=== PATIENT | male | born 1950 | race Caucasian/White ===

== ENCOUNTER 2018-05-13 08:43 | Outpatient (CLI) | payer MEDICARE, MEDICAID, SELFPAY ==
[2018-05-13 09:34] LABS: Hemoglobin A1C 6.4 % (4.5-6.2)
[2018-05-13 09:58] LABS: ALT 41 U/L (12-78); AST 28 U/L (15-37); Albumin 3.8 g/dL (3.4-5.0); Alkaline Phosphatase 80 U/L (46-116); Anion Gap 9.5 mmol/L (3-11); BUN 17 mg/dL (7-18); Bilirubin, Total 0.4 mg/dL (0.2-1.0); CO2 30.5 mmol/L (21.0-32.0); CREATININE 0.92 mg/dL (0.70-1.30); Calcium 9.1 mg/dL (8.5-10.1); Chloride 102 mmol/L (98-107); Glucose 124 mg/dL (70-100); Potassium 4.3 mmol/L (3.5-5.1); Sodium 142 mmol/L (136-145); Total Protein 7.2 g/dL (6.4-8.2)
[2018-05-13 13:41] LABS: Cholesterol 176 mg/dL (50-200); HDL Cholesterol 38 mg/dL (40-60); LDL CHOLESTEROL 130 mg/dL (<100); Triglyceride 97 mg/dL (30-150)
[2018-05-13 13:45] LABS: COMMENT (LAB VIEW ONLY) 189.07 mg/dL; Microalb ug/mg Crea 4.8 ug/mg Cr
== END 2018-05-13 09:03 ==
PROVIDERS: PCP Family Medicine; Visit Provider Family Medicine
DX: E11.9 Type 2 diabetes mellitus without complications; I10 Essential (primary) hypertension
CPT/HCPCS: 36415; 80053; 80061; 83721; 82043; 82570; 83036

== ENCOUNTER 2019-01-11 10:51 | Emergency (ER) | payer MEDICARE, MEDICAID, SELFPAY ==
[2019-01-11 10:55] VITALS: BP 139/63; PULSE 87; RESP 16; TEMP 36.8; O2SAT 95
[2019-01-11] MEDS: Cephalexin 500 MG CAP PO (11:21)
--- NOTE | 2019-01-11 11:28 | ED.GENADUL_ITS ---
Discharge Plan Disposition Patient Disposition: HOME Condition: Stable Discharge Details Chief Complaint: RashLesion Clinical Impression: Bug bite with infection Primary Care Provider: Vikki Lucero ED Provider: Juan Hernandez Home Meds and New Rx's Prescriptions: New cephalexin 500 mg tablet 500 mg PO QID 7 Days Qty: 28 RF: 0 Continued pravastatin 40 mg tablet 40 mg PO DAILY Qty: 30 RF: 4 albuterol sulfate [ProAir HFA] 8.5 GM HFA aerosol inhaler 1 - 2 puff Inhalation QID PRNQty: 1 RF: 3 Aerochamber Plus Flow-Vu 1 EACH spacer 1 ea Miscellaneous QID PRNQty: 1 RF: 0 metformin 500 MG tablet 500 mg PO DAILY Qty: 90 RF: 2 hydrochlorothiazide 25 MG tablet 25 mg PO DAILY Qty: 90 RF: 4 lisinopril 10 MG tablet 10 mg PO DAILY Qty: 90 RF: 4 No Action aspirin [Adult Low Dose Aspirin] 81 mg tablet,delayed release (DR/EC) 81 mg PO DAILY Qty: 90 RF: 0 Discharge Instructions Instructions: Cellulitis (ED), Insect Bite or Sting (ED) Additional Instructions: Please take antibiotic as prescribed and for the full course and return to the emergency department immediately for any new or significant worsening of symptoms or if not seeing signs of resolution in 48 hours. Otherwise follow-up with your primary care provider for reassessment if not improving over the next week. If you develop any fever, joint pain, or bull's-eye type rash you should follow- up with your primary care provider for further testing of tickborne illnesses. Referrals: Vikki Lucero MD [Primary Care Provider] - (As needed for reassessment if not improving in 1 week) Discharge Data Discharge Date/Time-TO BE ENTERED AT DEPARTURE: 01/11/19 11:40 Medical Decision Making Patient reports 2 days ago he noticed some itching to the posterior aspect of the left arm. When he started itching it he felt a bug attached and removed it. Patient states he looked at this and it did not appear like a tick nor was engorged so he threw it away. Then over the last couple days the site has continued to be itchy. Yesterday evening he noted some increase in discomfort to this area and this morning when he had his look at it it was significantly reddened and slightly swollen. Physical exam shows erythema to the posterior aspect of the upper left extremity with a central bite wilson. There is mild streaking erythema going proximal to this area that is also noted along with mild induration surrounding the bite wilson and swelling. No joint swelling is noted, and exam is otherwise unremarkable. Patient denies insect being tick and denies any symptoms of tickborne illness otherwise. I do feel that patient has infected tick bite was placed upon Keflex for coverage of cellulitis. Did discuss typical symptoms of tick bite illness with patient and informed him that he should follow-up with primary care if these began occurring. Return precautions were discussed after discussion of diagnosis and plan of care patient has no further needs, questions, or concerns and states clear understanding to return to the emergency department for any worsening symptoms. HPI General Mode of arrival: ambulatory . Date/Time Provider Initiated Documentation: 01/11/19 11:07 . Limitations to Documentation: no limitations . Information obtained by: patient and RN notes reviewed . History of Present Illness 68 year old M presents to the emergency department with the chief complaint of insect bite, described as mild, with intensity rated at 2. Quality is described as aching, and is localized to the left and upper extremity. Patient started experiencing this day(s) (2) and it has been constant. Patient notes no other symptoms.. Patient did receive the following treatments prior to arrival, none Related Data Home Medications Medication Instructions Recorded Confirmed Aerochamber Plus Flow-Vu #1 inhaler 10/22/16 01/13/19 albuterol sulfate [ProAir HFA] 1 - 2 puff INHALATION QID PRN #1 10/22/1601/13 inhaler metformin 500 mg PO DAILY #90 tab-cap 02/17/18 01/13/19 hydrochlorothiazide 25 mg PO DAILY #90 tab-cap 02/28/18 01/13/19 lisinopril 10 mg PO DAILY #90 tab-cap 02/28/18 01/13/19 pravastatin 40 mg tablet 40 mg PO DAILY #30 tab 05/17/18 01/13/19 cephalexin 500 mg PO QID 7 Days #28 tab 01/11/19 01/13/19 aspirin 81 mg tablet,delayed 81 mg PO DAILY #90 tab 01/13/19 01/13/19 release Previous Rx's Medication Instructions Recorded metformin 500 mg PO DAILY #90 tab-cap 02/17/18 hydrochlorothiazide 25 mg PO DAILY #90 tab-cap 02/28/18 lisinopril 10 mg PO DAILY #90 tab-cap 02/28/18 pravastatin 40 mg tablet 40 mg PO DAILY #30 tab 05/17/18 cephalexin 500 mg PO QID 7 Days #28 tab 01/11/19 aspirin 81 mg tablet,delayed 81 mg PO DAILY #90 tab 01/13/19 release Allergies Allergy/AdvReac Type Severity Reaction Status Date / Time No Known Allergies Allergy Unverified 01/13/19 11:23 General Stated Complaint: RashLesion [place]: 5 Review of Systems Constitutional Denies body ache(s), Denies fever(s) and Denies headache(s) ENT Denies headache(s) Musculoskeletal Denies myalgias, Denies arthralgias and Denies joint swelling Integumentary/Breasts Reports as per HPI, Reports erythema and Denies rash Neurologic Denies headache(s) and Denies paresthesias [facility] Surgical History ARTHOPLASTY (02/12/15) Colonoscopy - MAC (05/27/16) Repair of inguinal hernia Repair of umbilical hernia TRABECULOPLASTY (06/26/14) Tonsillectomy 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) Family History Father Diabetes Social History Smoking/Tobacco Use Status: Former Tobacco Use Tobacco: How many years used: 55 Alcohol Intake: never Drug use: Never Substance use type: does not use Household members: other Details: 3 Pets and animals: No What type of physical activity do you participate in: none Ita/Tenriism: Buddhist Special ita needs: No Do you feel safe at home: Yes Do you feel safe in your relationship?: Yes Exam Const General: cooperative, comfortable and no acute distress Orientation: alert, awake and oriented x3 Resp Effort & Inspection: normal respiratory effort and able to speak in complete sentences Skin General skin exam: erythema (Circular area with central bite wilson consistent with insect bite), no fluctuance and induration Rashes: no rashes Neuro General: alert, awake and oriented x3 Course Vital Signs Temperature 36.8 C 01/11/19 10:55 Pulse 87 01/11/19 10:55 Respiratory Rate 16 01/11/19 10:55 Blood Pressure 139/63 01/11/19 10:55 Pulse Oximetry 95 01/11/19 10:55 Temperature 36.8 C 01/11/19 10:55 Temperature Source Temporal Artery Scan 01/11/19 10:55 Pulse 87 01/11/19 10:55 Respiratory Rate 16 01/11/19 10:55 Respiratory Effort Non-Labored 01/11/19 10:55 Blood Pressure 139/63 01/11/19 10:55 Blood Pressure Position Supine 01/11/19 10:55 Pulse Oximetry 95 01/11/19 10:55 Oxygen Delivery Method Room Air 01/11/19 10:55 Oxygen Flow Rate 0 01/11/19 10:55 Pain Level 1 01/11/19 10:55
== END 2019-01-11 11:40 | disposition home or self-care (01) ==
PROVIDERS: Emergency Provider Nurse Practitioner Family; PCP Family Medicine
DX: L03.114 Cellulitis of left upper limb (principal); S40.862A Insect bite (nonvenomous) of left upper arm, initial encounter; W57.XXXA Bitten or stung by nonvenomous insect and other nonvenomous arthropods, initial encounter
CPT/HCPCS: 99283

== ENCOUNTER 2019-05-16 07:00 | Outpatient (CLI) | payer MEDICARE, MEDICAID, SELFPAY ==
[2019-05-16 13:10] LABS: Absolute Basophil Count 0.01 k/cumm (0.0-0.2); Absolute Eosinophil Count 0.14 k/cumm (0.0-0.7); Absolute Lymphocyte Count 1.02 k/cumm (1.2-3.4); Absolute Monocyte Count 0.51 k/cumm (0.11-0.7); Absolute Neutrophil Count 4.76 k/cumm (1.2-6.7); Basophils % 0.2; Eosinophils % 2.2; HGB 13.5 g/dL (13.5-17.5); Lymphocytes % 15.8; Mean Corp. HGB Concentration 32.9 g/dL (32.0-36.0); Mean Corpuscular Hemoglobin 31.3 pg (27.0-33.0); Mean Corpuscular Volume 95.1 fL (80-95); Mean Platelet Volume 10.3 fL (8.0-11.0); Monocytes % 7.9; Neutrophils % 73.9; Platelet Count 146 x1000/uL (130-400); RBC 4.31 m/cumm (4.50-6.00); RBC Distribution Width 12.4 % (11.8-14.1); White Blood Cell Count 6.44 k/cumm (4.4-10.8)
[2019-05-16 14:05] LABS: ALT 45 U/L (16-63); AST 34 U/L (15-37); Albumin 3.3 g/dL (3.4-5.0); Alkaline Phosphatase 59 U/L (46-116); Anion Gap 3.7 mmol/L (3-11); BUN 9 mg/dL (7-18); Bilirubin, Total 0.6 mg/dL (0.2-1.0); CO2 31.3 mmol/L (21.0-32.0); CREATININE 0.73 mg/dL (0.70-1.30); Calcium 8.8 mg/dL (8.5-10.1); Calculated LDL 50 mg/dL; Chloride 107 mmol/L (98-107); Cholesterol 93 mg/dL (50-200); Glucose 122 mg/dL (70-100); HDL Cholesterol 29 mg/dL (40-60); Sodium 142 mmol/L (136-145); Total Protein 6.3 g/dL (6.4-8.2); Triglyceride 71 mg/dL (30-150)
[2019-05-16 14:22] LABS: Hemoglobin A1C 6.1 % (4.5-6.2)
== END 2019-05-16 07:20 ==
PROVIDERS: PCP Family Medicine; Visit Provider Family Medicine
DX: E78.5 Hyperlipidemia, unspecified (principal); I10 Essential (primary) hypertension; R63.4 Abnormal weight loss; R73.09 Other abnormal glucose; R73.9 Hyperglycemia, unspecified
CPT/HCPCS: 36415; 80053; 80061; 83036; 85025

== ENCOUNTER 2019-05-17 12:54 | Outpatient (REF) | payer MEDICARE, MEDICAID, SELFPAY ==
[2019-05-17 14:32] LABS: COMMENT (LAB VIEW ONLY) 214.42 mg/dL; Microalb ug/mg Crea 9.2 ug/mg Cr
== END 2019-05-17 13:14 ==
LOC: LBN 12:54
PROVIDERS: PCP Family Medicine; Visit Provider Family Medicine
DX: E11.9 Type 2 diabetes mellitus without complications (principal); I10 Essential (primary) hypertension; R63.4 Abnormal weight loss
CPT/HCPCS: 82043; 82570

== ENCOUNTER 2019-08-25 07:00 | Outpatient (CLI) | payer MEDICARE, MEDICAID, SELFPAY ==
[2019-08-25 12:35] LABS: Abs Immature Grans 0.01 k/cumm (0.0-0.09); Absolute Basophil Count 0.02 k/cumm (0.0-0.2); Absolute Eosinophil Count 0.15 k/cumm (0.0-0.7); Absolute Lymphocyte Count 1.26 k/cumm (1.2-3.4); Absolute Monocyte Count 0.54 k/cumm (0.11-0.7); Absolute Neutrophil Count 3.94 k/cumm (1.2-6.7); Basophils % 0.3; Eosinophils % 2.5; HGB 15.8 g/dL (13.5-17.5); Immature Grans % 0.2 %; Lymphocytes % 21.3; Mean Corp. HGB Concentration 32.9 g/dL (32.0-36.0); Mean Corpuscular Hemoglobin 29.6 pg (27.0-33.0); Mean Corpuscular Volume 90.1 fL (80-95); Mean Platelet Volume 11.1 fL (8.0-11.0); Monocytes % 9.1; Neutrophils % 66.6; Platelet Count 144 x1000/uL (130-400); RBC 5.33 m/cumm (4.50-6.00); RBC Distribution Width 13.5 % (11.8-14.1); White Blood Cell Count 5.92 k/cumm (4.4-10.8)
[2019-08-25 13:20] LABS: Iron 106 ug/dL (65-175); Total Iron Binding Capacity 296 ug/dL (250-450); Transferrin Sat 36 % (20-55)
[2019-08-25 13:29] LABS: ALT 33 U/L (16-63); AST 28 U/L (15-37); Albumin 3.6 g/dL (3.4-5.0); Alkaline Phosphatase 95 U/L (46-116); Anion Gap 8.5 mmol/L (3-11); BUN 13 mg/dL (7-18); Bilirubin, Total 0.4 mg/dL (0.2-1.0); CO2 27.5 mmol/L (21.0-32.0); CREATININE 0.72 mg/dL (0.70-1.30); Calcium 8.8 mg/dL (8.5-10.1); Chloride 103 mmol/L (98-107); Ferritin 398 ng/mL (26-388); Glucose 106 mg/dL (74-106); Potassium 4.2 mmol/L (3.5-5.1); Sodium 139 mmol/L (136-145); Total Protein 6.8 g/dL (6.4-8.2)
[2019-08-25 13:30] LABS: ESR 11 mm/hr (1-20)
== END 2019-08-25 07:20 ==
PROVIDERS: PCP Family Medicine; Visit Provider Family Medicine
DX: E11.9 Type 2 diabetes mellitus without complications (principal); R63.4 Abnormal weight loss; K62.5 Hemorrhage of anus and rectum; N40.0 Benign prostatic hyperplasia without lower urinary tract symptoms; Z12.5 Encounter for screening for malignant neoplasm of prostate
CPT/HCPCS: 36415; 80053; 84153; 85652; 82728; 83540; 83550; 85025

== ENCOUNTER 2019-08-29 12:19 | Outpatient (CLI) | payer MEDICARE, MEDICAID, SELFPAY ==
[2019-08-29 12:48] LABS: Bilirubin Negative (Negative); Blood Negative (Negative); Clarity Clear (Clear); Glucose 100 mg/dL (Negative); Ketones Negative (Negative); Leukocyte Esterase Negative (Negative); Nitrite Negative (Negative)
== END 2019-08-29 12:39 ==
PROVIDERS: PCP Family Medicine; Visit Provider Family Medicine
DX: R35.0 Frequency of micturition (principal)
CPT/HCPCS: 81003

== ENCOUNTER 2019-09-02 02:03 | Outpatient (CLI) | payer MEDICARE, MEDICAID, SELFPAY ==
[2019-09-02] MEDS: Omnipaque 350 MG/ML 50 ML BTL PO (10:58)
[2019-09-02] MEDS: Normal Saline - Diluent 50 ML VIAL IV (13:16)
[2019-09-02] MEDS: Omnipaque 350 MG/ML 100 ML BTL IJ (13:18)
--- NOTE | 2019-09-02 13:25 | DI.CT_ITS ---
EXAM: CT CHEST/ABD/PEL W CLINICAL HISTORY: ABNORMAL/RAPID WEIGHT LOSS/SOB/FATIGUE R63.4 TECHNIQUE: CT examination of the chest, abdomen, and pelvis was performed with intravenous infusion of 125 cc Omnipaque 350 and ingestion of dilute barium. COMPARISON: UPPER ABD WITH CONTRAST (P) from 10/24/2010 FINDINGS: There are scattered predominantly peripheral reticular radiodensities consistent with scarring. Mild emphysematous changes noted. Nodular pleural density is present posterolaterally in the right lower lobe measuring up to about 13 millimeters in diameter; I am uncertain whether this represents an are a of scarring or true pulmonary nodule. No pleural effusion seen. No other intrapulmonary nodule or mass. Tracheobronchial tree appears intact. No mediastinal or hilar adenopathy. Thoracic aorta un remarkable. No evidence of pulmonary embolic disease. Question mildly nodular hepatic contour, correlation requested regarding any possibility of cirrhosis . Spleen is unremarkable. Pancreas appears normal. Presumed duodenal diverticulum noted. Gallblad steph and bile ducts are CT normal. Adrenals appear normal bilaterally. There appears to be bilateral renal cortical scarring. Nonobstr ucting 3 millimeter left renal calculus noted. No evidence of urinary tract obstruction. No renal m ass identified. Small fat-containing umbilical hernia noted. No other significant abdominal wall hernia seen. Appendix is normal. No evidence of diverticulitis or bowel obstruction. No abdominal or pelvic adenopathy seen. Abdominal aorta is of normal diameter. Calcified atheromato us plaque noted involving aorta and major branch vessels. Bilateral hip prostheses noted. No other significant abnormality involving the skeletal system as vi sualized. IMPRESSION: Indeterminate right lower lobe nodular density, 13 millimeters in diameter. Additional evaluation wi th a PET/CT or tissue sampling may be considered in this patient with worrisome constitutional sympto ms. Question nodular hepatic contour, which could represent cirrhosis; please correlate clinically.
== END 2019-09-02 02:23 ==
PROVIDERS: PCP Family Medicine; Visit Provider Family Medicine
DX: R63.4 Abnormal weight loss (principal); R53.83 Other fatigue; R06.02 Shortness of breath; K42.9 Umbilical hernia without obstruction or gangrene; N20.0 Calculus of kidney; J98.4 Other disorders of lung; K76.89 Other specified diseases of liver
CPT/HCPCS: 74177; 71260; J3490; Q9967

== ENCOUNTER 2019-09-16 02:42 | Outpatient (CLI) | payer MEDICARE, MEDICAID, SELFPAY ==
--- NOTE | 2019-09-16 09:15 | DI.US_ITS ---
EXAM: US ABDOMEN CLINICAL HISTORY: irregular liver contour on CT,abnormal weight loss, R93.5 TECHNIQUE: Ultrasound performed using standard protocol. COMPARISON: CT CHEST/ABD/PEL W from 09/02/2019 FINDINGS: The liver is within normal limits in size, measuring 15 cm in length. There is mild diffuse heterogen eous liver echotexture. No focal liver masses are seen. There is normal flow direction in the portal vein. No varices are seen. There is no evidence of ascites. There is no biliary dilatation. The gallb ladder, spleen and kidneys are unremarkable. Pancreas, aorta and IVC were not well seen. IMPRESSION: Mild coarsening of the liver echotexture. No other secondary signs of cirrhosis are seen. DATA REPOSITORY:
== END 2019-09-16 03:02 ==
PROVIDERS: PCP Family Medicine; Visit Provider Family Medicine
DX: R93.2 Abnormal findings on diagnostic imaging of liver and biliary tract (principal); R63.4 Abnormal weight loss
CPT/HCPCS: 76700

== ENCOUNTER 2019-12-29 02:00 | Outpatient (CLI) | payer MEDICARE, MEDICAID, SELFPAY ==
--- NOTE | 2019-12-29 14:57 | DI.CT_ITS ---
EXAM: CT CHEST WO CLINICAL HISTORY: NODULE OF LUNG, R91.1, SOLITARY RT LOWER LOBE NODULE TECHNIQUE: COMPARISON: CT CT CHEST/ABD/PEL W from 09/02/2019 FINDINGS: CT examination of the chest was performed without contrast administration. Examination is compared w ith prior study September 02, 2019 which showed bilateral peripheral reticular intrapulmonary radiodens ities with 13 millimeter in diameter right lower lobe peripheral nodular density. Images obtained through the upper abdomen show normal appearance of visualized portions of the kidney s spleen pancreas and adrenals. Unremarkable appearance of the liver.. No pleural effusion seen. No mediastinal or hilar adenopathy. Unremarkable appearance of tracheobro nchial tree. There are bilateral peripheral reticular radiodensities. Previously described peripheral posterolate ral right nodular radiodensity is unchanged from prior study, measuring 13 in greatest. No new intra pulmonary nodule seen. IMPRESSION: Stable appearance of previously noted peripheral pleural based 13 millimeter nodule, no change from F ebruary 7th examination. No other significant change.
== END 2019-12-29 02:20 ==
PROVIDERS: PCP Family Medicine; Visit Provider Internal Medicine
DX: R91.1 Solitary pulmonary nodule (principal); J98.4 Other disorders of lung
CPT/HCPCS: 71250

== ENCOUNTER 2020-02-14 03:38 | Outpatient (CLI) | payer MEDICARE, MEDICAID, SELFPAY ==
[2020-02-14 15:59] LABS: Abs Immature Grans 0.01 k/cumm (0.0-0.09); Absolute Basophil Count 0.02 k/cumm (0.0-0.2); Absolute Eosinophil Count 0.24 k/cumm (0.0-0.7); Absolute Lymphocyte Count 1.92 k/cumm (1.2-3.4); Absolute Monocyte Count 0.68 k/cumm (0.11-0.7); Absolute Neutrophil Count 4.87 k/cumm (1.2-6.7); Basophils % 0.3; Eosinophils % 3.1; HCT 46.2 % (40.0-50.0); HGB 15.7 g/dL (13.5-17.5); Immature Grans % 0.1 %; Lymphocytes % 24.8; Mean Corpuscular Hemoglobin 32.2 pg (27.0-33.0); Mean Corpuscular Volume 94.7 fL (80-95); Mean Platelet Volume 9.6 fL (8.0-11.0); Monocytes % 8.8; Neutrophils % 62.9; Platelet Count 137 x1000/uL (130-400); RBC 4.88 m/cumm (4.50-6.00); White Blood Cell Count 7.74 k/cumm (4.4-10.8)
[2020-02-14 16:19] LABS: Hemoglobin A1C 6.1 % (3.8-5.6)
[2020-02-14 16:21] LABS: Microalb ug/mg Crea 3.6 ug/mg Cr
[2020-02-14 16:34] LABS: ALT 37 U/L (16-63); AST 29 U/L (15-37); Albumin 3.9 g/dL (3.4-5.0); Alkaline Phosphatase 83 U/L (46-116); Anion Gap 8.9 mmol/L (3-11); BUN 20 mg/dL (7-18); Bilirubin, Total 0.4 mg/dL (0.2-1.0); CO2 28.1 mmol/L (21.0-32.0); CREATININE 1.01 mg/dL (0.70-1.30); Calcium 8.9 mg/dL (8.5-10.1); Chloride 101 mmol/L (98-107); Glucose 93 mg/dL (74-106); Sodium 138 mmol/L (136-145); TSH (W/Ref FT4) 0.03 uIU/mL (0.36-3.74); Total Protein 7.3 g/dL (6.4-8.2)
[2020-02-14 16:56] LABS: FREE T4 0.87 ng/dL (0.76-1.46)
[2020-02-15 12:19] LABS: Albumin 57.6 % (55.8-66.1)
[2020-02-16 22:21] LABS: T3, Total 163 ng/dL (97-169)
== END 2020-02-14 03:58 ==
PROVIDERS: PCP Family Medicine; Visit Provider Family Medicine
DX: E11.9 Type 2 diabetes mellitus without complications (principal); K76.0 Fatty (change of) liver, not elsewhere classified; R63.4 Abnormal weight loss
CPT/HCPCS: 36415; 80053; 82043; 82570; 83036; 84165; 84439; 84443; 84480; 85025; 85610

== ENCOUNTER 2020-08-02 01:28 | Outpatient (CLI) | payer MEDICARE, MEDICAID, SELFPAY ==
--- NOTE | 2020-08-02 14:20 | DI.CT_ITS ---
EXAM: CT CHEST WO CLINICAL HISTORY: F/U PULMONARY NODULE, R91.1. TECHNIQUE: Multi planar reconstructions were performed. CONTRAST MATERIAL: Omnipaque 350; 75 cc COMPARISON: CT CT CHEST/ABD/PEL W from 09/02/[address] CHEST/ABD/PEL W from 09/02/[address] CHEST WO from 12/29/[address] CHEST WO from 12/29/2019 FINDINGS: CHEST: LUNGS: In the right lower lobe the previously described pleural-based nodular infiltrate remains unch anged in size and configuration from both August 2019 and December 2019. In addition reticular marking s in the lower lung diane are also unchanged. There are no new infiltrates. No significant pleural effusions. MEDIASTINUM: There is no obvious hilar nor mediastinal adenopathy. Visualized thyroid unremarkable. CARDIAC: Heart size is normal. There is no pericardial effusion.Caliber of the thoracic aorta is wit hin normal limits. VISUALIZED UPPER ABDOMEN:There are no significant adrenal masses. Nonobstructive small calculus in l eft kidney incidentally noted. OSSEOUS: No new significant osseous lesions.. IMPRESSION: 1. Continued stable appearance of the previously described pleural base nodular infiltrate in the rig ht lower lobe, unchanged from August and December 2019. No associated rib destruction nor significant pleural effusion. No obvious intrathoracic adenopathy. RADIATION DOSE DELIVERED: 1,127.27mGy.cm Total DLP DATA REPOSITORY: All CT scans at this facility are submitted to the National Radiology Data Registry (NRDR) Dose Index Registry (DIR) with the [employer] ([employer]). RADIATION OPTIMIZATION: All CT scans at this facility use at least one of these dose optimization te chniques: automated exposure control; mA and/or kV adjustment per patient size (includes targeted exa ms where dose is matched to clinical indication); or iterative reconstruction.
== END 2020-08-02 01:48 ==
PROVIDERS: PCP Family Medicine; Visit Provider Internal Medicine
DX: R91.1 Solitary pulmonary nodule (principal)
CPT/HCPCS: 71250

== ENCOUNTER 2020-11-05 10:17 | Outpatient (CLI) | payer MEDICARE, MEDICAID, SELFPAY ==
[2020-11-06 14:14] LABS: COVID-19 RT-PCR UVMMC Result Negative (Negative)
== END 2020-11-05 10:18 | disposition home or self-care (01) ==
PROVIDERS: PCP Family Medicine; Visit Provider Family Medicine
DX: Z20.822 Contact with and (suspected) exposure to COVID-19 (principal)
CPT/HCPCS: U0003; U0005

== ENCOUNTER 2021-02-13 18:24 | Outpatient (REF) | payer MEDICARE, MEDICAID, SELFPAY ==
[2021-02-14 16:23] LABS: Rheumatoid Factor <8.6 IU/mL (<12.0)
[2021-02-15 09:04] LABS: Cyclic Citrullinated Peptide <2.5 U/mL (<5.0)
[2021-02-15 14:01] LABS: ANA Interpretation Positive (Negative); ANA Titer Pattern 1:640 Homogeneous
== END 2021-02-13 18:25 | disposition home or self-care (01) ==
LOC: LBN 18:24
PROVIDERS: PCP Family Medicine; Visit Provider Student in an Organized Health Care Education/Training Program
DX: J84.10 Pulmonary fibrosis, unspecified (principal)
CPT/HCPCS: 86200; 86038; 86431

== ENCOUNTER 2021-02-20 02:44 | Outpatient (CLI) | payer MEDICARE, MEDICAID, SELFPAY ==
--- NOTE | 2021-02-20 07:45 | DI.CT_ITS ---
Exam(s) CT CHEST HIGH RESOLUTION EXAM: CT CHEST HIGH RESOLUTION CLINICAL HISTORY: F/U fibrosis seen on prior exam,J84.10. TECHNIQUE: Multi planar reconstructions were performed. CONTRAST MATERIAL: None COMPARISON: CT CT CHEST WO from 08/02/2020 FINDINGS: CHEST: LUNGS: There is continued stability of the previously described interstitial peripheral reticular mar kings and the pleural based infiltrate in the posterior basal segment of the right lower lobe. No ne w findings. The interstitial findings in both lung diane are mostly concentrated peripherally and p robably an element of interstitial fibrosis. No associated pleural effusions MEDIASTINUM: There is no obvious hilar nor mediastinal adenopathy. Visualized thyroid unremarkable.No obvious axillary adenopathy CARDIAC: Heart size is normal. There is no pericardial effusion.Diameter of the ascending thoracic a rafat is enlarged, measuring 4.2 cm. Diameter of the mid aortic arch is upper normal as is diameter o f the proximal descending thoracic aorta. VISUALIZED UPPER ABDOMEN:No significant adrenal masses. No splenomegaly. OSSEOUS: No significant osseous lesions.. IMPRESSION: 1. Continued stable appearance of the previously described pleural based infiltrate in the right lowe r lobe, not associated with pleural effusion or rib destruction. This finding is superimposed upon p reviously described unchanged reticular interstitial disease, probably an element of pulmonary fibros is. 2. 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 3. Heart size is normal. There is no pericardial effusion RADIATION DOSE DELIVERED: 1,020.5mGy.cm Total DLP DATA REPOSITORY: All CT scans at this facility are submitted to the National Radiology Data Registry (NRDR) Dose Index Registry (DIR) with the [employer] (ACR). RADIATION OPTIMIZATION: All CT scans at this facility use at least one of these dose optimization te chniques: automated exposure control; mA and/or kV adjustment per patient size (includes targeted exa ms where dose is matched to clinical indication); or iterative reconstruction.
== END 2021-02-20 03:04 ==
PROVIDERS: PCP Family Medicine; Visit Provider Student in an Organized Health Care Education/Training Program
DX: J84.10 Pulmonary fibrosis, unspecified (principal); R91.8 Other nonspecific abnormal finding of lung field; I77.810 Thoracic aortic ectasia
CPT/HCPCS: 36415; 71250; 86225

== ENCOUNTER 2021-02-20 08:12 | Outpatient (CLI) | payer MEDICARE, MEDICAID, SELFPAY ==
[2021-02-26 13:27] LABS: dsDNA Ab, IgG 47.3 IU/mL (<30.0)
== END 2021-02-20 08:13 | disposition home or self-care (01) ==
LOC: LBO 08:46
PROVIDERS: PCP Family Medicine; Visit Provider Student in an Organized Health Care Education/Training Program
DX: J84.10 Pulmonary fibrosis, unspecified (principal)
CPT/HCPCS: 36415; 86225

== ENCOUNTER 2021-03-13 02:16 | Outpatient (CLI) | payer MEDICARE, MEDICAID, SELFPAY ==
[2021-03-14 11:29] LABS: dsDNA Ab, IgG 50.7 IU/mL (<30.0)
== END 2021-03-13 02:17 | disposition home or self-care (01) ==
PROVIDERS: PCP Family Medicine; Visit Provider Student in an Organized Health Care Education/Training Program
DX: J84.10 Pulmonary fibrosis, unspecified (principal)
CPT/HCPCS: 36415; 86225

== ENCOUNTER 2021-05-16 02:55 | Outpatient (CLI) | payer MEDICARE, MEDICAID, SELFPAY | END 2021-05-16 02:56 | disposition home or self-care (01) | LOC: RT 02:55 | PROVIDERS: PCP Family Medicine; Visit Provider Student in an Organized Health Care Education/Training Program | DX: Z53.8 Procedure and treatment not carried out for other reasons (principal) ==

== ENCOUNTER 2022-10-24 10:31 | Outpatient (CLI) | payer OTHER, MEDICAID, SELFPAY ==
--- NOTE | 2022-10-24 09:45 | DI.RAD_ITS ---
Exam(s) XR HIP RT AP LAT ONLY EXAM: XR HIP RT AP LAT ONLY INDICATION: eval R hip pain, h/o MAISHA. COMPARISON: CR Pelvis - 1 View from 10/15/2016 TECHNIQUE: 2D digital imaging was performed. Two views. FINDINGS: There has been no change in the alignment of the right total hip prosthesis. There are no surroundin g abnormal bony lucencies. DATA REPOSITORY: RADIATION DOSE DELIVERED:
== END 2022-10-24 10:32 | disposition home or self-care (01) ==
LOC: DIORS 10:31
PROVIDERS: PCP Family Medicine; Referring Provider Family Medicine; Visit Provider Student in an Organized Health Care Education/Training Program
DX: M70.61 Trochanteric bursitis, right hip (principal); Z96.641 Presence of right artificial hip joint; M25.561 Pain in right knee; M54.50 Low back pain, unspecified; M62.81 Muscle weakness (generalized)
CPT/HCPCS: 99214; 73502

== ENCOUNTER → 2023-01-19 09:56 | Outpatient (BNVA) | payer OTHER, MEDICAID, SELFPAY | PROVIDERS: PCP Family Medicine; Referring Provider Family Medicine; Visit Provider Student in an Organized Health Care Education/Training Program | DX: M70.61 Trochanteric bursitis, right hip (principal); I87.2 Venous insufficiency (chronic) (peripheral) | CPT/HCPCS: 99213 ==

== ENCOUNTER 2023-05-19 16:05 | Emergency (ER) | payer OTHER, MEDICAID, SELFPAY ==
[2023-05-19] VITALS (40 sets, daily range): BP systolic 124–158; BP diastolic 45–98; PULSE 42–83; RESP 11–26; TEMP 36.5; O2SAT 96
--- NOTE | 2023-05-19 16:00 | RT.EKG_ITS ---
APPROVED REPORT Exam: Resting ECG Reason for Exam: heart isues Patient Location: E HR:71 bpm ECG Measurements Heart Rate 71 AXIS ME 351 P 233 QRSd 91 QRS 16 QT 419 T 42 QTc 474 Conclusion sinus with prolonged ME Seth Gtz Type I Atrioventricular Block
--- NOTE | 2023-05-19 16:15 | DI.RAD_ITS ---
Exam(s) XR PORTABLE CHEST AP EXAM: XR PORTABLE CHEST AP CLINICAL HISTORY: shortness of breath. TECHNIQUE: 2D digital imaging was performed. COMPARISON: CT CT CHEST HIGH RESOLUTION from 02/20/2021 FINDINGS: Single AP portable view. Mild cardiomegaly. Mediastinum not widened. Pulmonary venous hypertension pattern. Suspicious for developing pulmonary edema. No fractures. IMPRESSION: Mild cardiomegaly. Pulmonary venous hypertension pattern. DATA REPOSITORY: RADIATION DOSE DELIVERED:
[2023-05-19 16:36] LABS: Abs Immature Grans 0.03 10^3/uL (0.0-0.06); Absolute Basophil Count 0.05 10^3/uL (0.0-0.2); Absolute Eosinophil Count 0.14 10^3/uL (0.0-0.7); Absolute Lymphocyte Count 1.45 10^3/uL (1.2-3.4); Absolute Monocyte Count 0.56 10^3/uL (0.1-0.8); Absolute Neutrophil Count 5.83 10^3/uL (1.2-6.7); Basophils % 0.6; Eosinophils % 1.7; HCT 46.4 % (40.0-50.0); HGB 15.2 g/dL (13.5-17.5); Immature Grans % 0.4; MCH 31.7 pg (27.0-33.0); MCHC 32.8 % (32.0-36.0); MCV 97 fL (80-95); MPV 9.2 fL (8.0-11.0); Monocytes % 6.9; Neutrophils % 72.4; Platelet Count 171 10^3/uL (130-400); RBC 4.79 10^6/uL (4.36-5.78); RDW 13.2 % (11.8-14.1); RDW-SD 47.7 fL; WBC 8.06 10^3/uL (4.4-10.8)
[2023-05-19 16:55] LABS: Source Nasal/Nares
--- NOTE | 2023-05-19 16:57 | ED.GENADUL_ITS ---
Discharge Plan Disposition Patient Disposition: Admit to [facility] Condition: Fair Discharge Details Clinical Impression: Atrioventricular block, Mobitz type 1, Wenckebach Primary Care Provider: Aby Austin ED Provider: Aruna Montemayor Home Meds and New Rx's Prescriptions: No Action (DME) Aerovent Plus Spacer See Rx Instructions .Route Qty: 1 0RF Rx Instructions: As directed - use with albuterol inhaler multivitamin Tablet 1 tab PO DAILY Qty: 100 3RF metformin 500 mg tablet 500 mg PO DAILY Qty: 30 12RF furosemide 20 mg tablet 20 mg PO DAILY Qty: 30 1RF potassium chloride 10 mEq capsule, extended release 10 meq PO DAILY Qty: 30 5RF aspirin 81 mg tablet,chewable 81 mg PO DAILY metoprolol tartrate 25 mg tablet 25 mg PO Q12H Qty: 60 3RF pravastatin 40 mg tablet 40 mg PO DAILY Qty: 90 4RF amlodipine 5 mg tablet 5 mg PO DAILY Qty: 30 3RF albuterol sulfate [Ventolin HFA] 90 mcg/actuation HFA aerosol inhaler 2 puff inhalation QID PRN (Reason: shortness of breath or wheezing) Qty: 18 5RF Ozempic 0.25 mg or 0.5 mg (2 mg/3 mL) pen injector 0.5 mg subcut QWEEK Qty: 3 0RF Rx Instructions: 0.5mg weekly for 4 weeks Medical Decision Making Emergent evaluation of cardiac dysrhythmia. At this time the patient is hemodynamically stable. His EKG does demonstrate I reviewed the sleep study report and noted that symptoms seem to worsen during his periods of apnea and hypoxemia though the study was completed almost a month ago and the patient has not had any significant events in the interim. Initial plan for labs, electrolytes, telemetry monitoring and discussion with cardiology. 1715: Discussed patient's case, sleep study and EKG findings with the EP software development coordinator at [facility]. They do not feel that the patient needs emergent transfer. He does recommend that the patient get a CPAP. I reviewed the patient's lab work and there were no clinically significant abnormalities. 1815: Discussed with hospitalist, will admit the patient and keep on telemetry to make sure that he does not have any more significant dysrhythmias while sleeping. Patient will need to have his CPAP arranged for home use. Medical Records Medical records reviewed: Yes I reviewed the patient's medical records. Imaging Data Radiologic Study: Attestation: I personally reviewed and interpreted this imaging study as follows: Imaging: X-Ray My impression: Cardiomegaly, no focal consolidation, no pleural effusion Lab Data Lab results reviewed: Yes I reviewed the patient's lab results. ECG Data Attestation: I personally reviewed and interpreted this ECG (s) as follows: Interpretation: prolonged NH, wtih lengthening to dropped HPI General Date/Time Provider Initiated Documentation: 05/19/23 16:07 . Limitations to Documentation: other (Patient's understanding) . Information obtained by: patient, RN/MD and old records reviewed . HPI Narrative: 72-year-old gentleman with multiple significant medical comorbidities including diabetes, hypertension, obesity presents for evaluation of abnormal heart rhythm. Patient reports that he was sent to the emergency department by his doctor. He is not able to provide much more pertinent information. He reports that he often gains and loses weight. He reports that he has been short of breath for the last 2 years. He reports that he occasionally has chest pain that feels like heartburn. Patient physician sent documentation stating that the patient had a diagnostic sleep study on April 26 which was read today. There was concern that during the sleep study, the patient developed significant apnea and hypoxemia which then resulted and type II heart block. Documentation states that he was sent to the emergency department for urgent cardiology evaluation Related Data Home Medications Medication Instructions Recorded Confirmed aspirin 81 mg chewable tablet 81 mg PO DAILY 09/11/22 05/01/23 metoprolol tartrate 25 mg tablet 25 mg PO Q12H #60 tabs 10/02/22 05/01/23 pravastatin 40 mg tablet 40 mg PO DAILY hyperlipidemia #90 10/02/22 05/01/23 tabs inhalational spacing device #1 ea 11/05/22 05/01/23 (Aerovent Plus spacer) multivitamin 1 tab PO DAILY #100 tabs 11/06/22 05/01/23 metformin 500 mg tablet 500 mg PO DAILY #30 tabs 03/31/23 05/01/23 furosemide 20 mg tablet 20 mg PO DAILY #30 tabs 05/01/23 05/01/23 potassium chloride 10 mEq 10 meq PO DAILY #30 caps 05/01/23 05/01/23 capsule,extended release Ventolin HFA 90 mcg/actuation 2 puff inhalation QID PRN 05/06/23 aerosol inhaler (albuterol sulfate) shortness of breath or wheezing #18 grams amlodipine 5 mg tablet 5 mg PO DAILY #30 tabs 05/06/23 semaglutide 0.25 mg or 0.5 mg (2 0.5 mg (0.736 mL) subcut QWEEK #3 05/06/23 mg/3 mL) subcutaneous pen injector mL (Ozempic) Previous Rx's Medication Instructions Recorded metoprolol tartrate 25 mg tablet 25 mg PO Q12H #60 tabs 10/02/22 pravastatin 40 mg tablet 40 mg PO DAILY hyperlipidemia #90 10/02/22 tabs inhalational spacing device #1 ea 11/05/22 (Aerovent Plus spacer) multivitamin 1 tab PO DAILY #100 tabs 11/06/22 metformin 500 mg tablet 500 mg PO DAILY #30 tabs 03/31/23 furosemide 20 mg tablet 20 mg PO DAILY #30 tabs 05/01/23 potassium chloride 10 mEq 10 meq PO DAILY #30 caps 05/01/23 capsule,extended release Ventolin HFA 90 mcg/actuation 2 puff inhalation QID PRN 05/06/23 aerosol inhaler (albuterol sulfate) shortness of breath or wheezing #18 grams amlodipine 5 mg tablet 5 mg PO DAILY #30 tabs 05/06/23 semaglutide 0.25 mg or 0.5 mg (2 0.5 mg (0.736 mL) subcut QWEEK #3 05/06/23 mg/3 mL) subcutaneous pen injector mL (Ozempic) Allergies Allergy/AdvReac Type Severity Reaction Status Date / Time No Known Allergies Allergy Verified 05/19/23 16:17 General Stated Complaint: SOB VALENTINA: 3 PFSH All Active Problems (Updated 05/19/23 @ 18:20 by Aruna Montemayor MD) Atrioventricular block, Mobitz type 1, Wenckebach (Acute) Mobitz type 2 second degree atrioventricular block (Acute) Type 2 diabetes mellitus without complication, without long-term current use of insulin (Acute) Lymphedema (Acute) Cellulitis of right leg (Acute ~02/2023) Trochanteric bursitis, right hip (Acute) Pain due to right hip joint prosthesis (Acute) Morbid obesity with BMI of 50.0-59.9, adult (Chronic) IPF (idiopathic pulmonary fibrosis) (Acute) Erectile dysfunction (Acute) Hepatic steatosis (Acute) Pulmonary nodule, right (Acute) Stable 13 mm nodule, right lower lobe, [id number] [facility] Gastroesophageal reflux disease (Acute) SOB (shortness of breath) on exertion (Chronic) 10/2013 : normal PFTs 04/19/14: negative nuclear sestamibi stress test : echocardiogram EF 65%/no valvulopathy/mild LVH : chest xray; COPD : PFTs mild obstructive disease Essential hypertension (Acute 06/07/13) Chronic venous insufficiency (Acute) Medical History History of E. coli septicemia (~08/2022) Admitted to [facility] - after ERCP at [facility] 08/2022. Hx of pulmonary embolus (~2021) 08/2021-dx by CT at [facility], inpt, echo-c/w RV strain, , EF-55-60 %, tx with eliquis, planned 6 month course. History of tobacco abuse quit in 2013; 50 packyr history. 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 Exacerbations based on weather. 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 CAO Repair of umbilical hernia pt states this was done as an infant.HE Repair of inguinal hernia pt states this was done as an .HE Colonoscopy - MAC (05/27/16) ARTHOPLASTY (02/12/15) DR. POLK; LEFT HIP Family History Father Diabetes Social History Smoking/Tobacco Use Status: Former Tobacco Use tobacco type: cigarettes Quit Date: 07/27/11 Tobacco: How many years used: 55 Smokeless tobacco user: other Quit status: has quit before Second Hand Exposure: Yes Smoking risk assessment performed?: Yes Alcohol Intake: current Alcohol Intake frequency: a few times a month Alcohol type: hard liquor Drug use: Never Substance use type: does not use Caregiver/Support person: No Household members: spouse, children and other Details: 3 Communication Needs: Cannot Read Do you need help understanding health information?: Often Pets and animals: Yes (2 dogs and 2 parrots) Sexually active: No Do you think of yourself as: straight/heterosexual Current gender identity: male What is your relationship status?: How often do you talk on the phone with friends or family?: once per week How often do you get together with friends or relatives?: decline to answer How often do you attend hindu or mosque services?: decline to answer Do you belong to any clubs or organized social groups?: no Panel score (0-1 are the most socially isolated patients): 1 What type of physical activity do you participate in: other Details: Pysical Therapy Duration: 15-30 minutes/day Frequency: daily Ita/Restorationist: None Special ita needs: No Seatbelt use: always Helmet use: Yes Helmet use: sometimes Drive intox or ride w/intox patrol driver: No Do you feel safe at home: Yes Do you feel safe in your relationship?: Yes Exam Narrative Exam Narrative: Review of Systems: All systems reviewed & are unremarkable except as noted in HPI and below: CONSTITUTIONAL: Alert and oriented obese no acute distress HEENT: NACT EYES: PERRL, no conjunctival injection EARS: no external abnormality NOSE nares patent MOUTH Moist MM NECK: Symmetric, trachea midline, No thyromegaly THROAT oropharynx clear CVS: RRR, No murmurs or gallops. sigificant lymphedema in b/l LE, equal RESP: Unlabored respiratory effort difficult to assess breath sounds 2/2 to habitus GI: Soft, Nontender, Nondistended, No organomegaly SKIN: b/l LE with chronic venous stasis changes, no active cellulitis appreciated NEURO: No focal neurologic deficits. retirement officer II-XII grossly intact Sensation grossly intact Normal strength throughout PSYCH: Appropriate mood and affect Course Vital Signs Vital signs: Vital Signs Temperature 36.5 C 05/19/23 16:08 Pulse 83 05/19/23 16:08 Respiratory Rate 26 H 05/19/23 16:08 Blood Pressure 142/71 H 05/19/23 16:08 Pulse Oximetry 96 05/19/23 16:08 Temperature 36.5 C 05/19/23 16:37 Temperature Source Oral 05/19/23 16:37 Pulse 83 05/19/23 16:37 Pulse 61 05/19/23 16:32 Respiratory Rate 22 05/19/23 16:39 Respiratory Effort Short of Breath 05/19/23 16:39 Respiratory Depth Normal 05/19/23 16:39 Respiratory Pattern Normal 05/19/23 16:39 Blood Pressure 142/71 H 05/19/23 16:37 Blood Pressure Mean 77 05/19/23 16:32 Blood Pressure Position Supine 05/19/23 16:37 Pulse Oximetry 96 05/19/23 16:37 Oxygen Delivery Method Room Air 05/19/23 16:37 Oxygen Flow Rate 0 05/19/23 16:37 Pain Level 3 05/19/23 16:37 Lab/Test Results Lab/Test Results: Laboratory Tests Range/Units 05/19/23 05/19/23 16:30 16:47 WBC (4.4-10.8) 10^3/uL 8.06 RBC (4.36-5.78) 10^6/uL 4.79 Hgb (13.5-17.5) g/dL 15.2 Hct (40.0-50.0) % 46.4 MCV (80-95) fL 97 H MCH (27.0-33.0) pg 31.7 MCHC (32.0-36.0) % 32.8 RDW (11.8-14.1) % 13.2 Plt Count (130-400) 10^3/uL 171 MPV (8.0-11.0) fL 9.2 Immature Gran % 0.4 Neutrophils % 72.4 Lymphocytes % 18.0 Monocytes % 6.9 Eosinophils % 1.7 Basophils % 0.6 Nucleated RBC % (0.0-0.3) % 0.0 Absolute Neutrophils (1.2-6.7) 10^3/uL 5.83 Absolute Lymphocytes (1.2-3.4) 10^3/uL 1.45 Absolute Monocytes (0.1-0.8) 10^3/uL 0.56 Absolute Eosinophils (0.0-0.7) 10^3/uL 0.14 Absolute Basophils (0.0-0.2) 10^3/uL 0.05 COVID-19 Source Nasal/Nares Critical Care Time Critical Care Time Critical Care Time: Yes Total Critical Care Time: 33 Attestation: CRITICAL CARE Upon my evaluation, this patient had a high probability of imminent or life- threatening deterioration due to cardiac dysrhythmia which required my direct at tention, intervention, and personal management. I have personally provided 33 minutes of critical care time exclusive of time spent on separately billable procedures. Time includes review of laboratory data, radiology results, discussion with consultants, and monitoring for potential decompensation. Interventions were performed as documented above PAWSS Have you Been Recently Intoxicated or Drunk Within the Last 30 days?: No Have you Ever Experienced Previous Episodes of Alcohol Withdrawal?: No Have you ever Experienced Withdrawal Seizures?: No Have you ever Experienced Delirium Tremens(DT)s?: No Have you ever undergone Alcohol Rehabilitation Treatment (i.e, inpt ot outpatient treatment programs)?: No Have you ever Experienced Blackouts?: No Have you ever Combined Alcohol with other Downers within the last 90 days?: No Have you ever Combined Alcohol with any other Substance of Abuse during the last 90 days?: No Positive Blood Alcohol level on Presentation? [PCS.BAL]: No Evidence of Increased Autonomic Activity (i.e. HR>120, tremor, sweating, agitation, nausea)?: No Result: 0
[2023-05-19 16:59] LABS: ALT 33 U/L (16-63); AST 23 U/L (15-37); Albumin 3.7 g/dL (3.4-5.0); Alkaline Phosphatase 78 U/L (46-116); Anion Gap 7.1 mmol/L (3-11); BUN 11 mg/dL (7-18); Bilirubin, Total 0.4 mg/dL (0.2-1.0); CO2 28.9 mmol/L (21.0-32.0); CREATININE 0.9 mg/dL (0.70-1.30); Calcium 9.1 mg/dL (8.5-10.1); Chloride 105 mmol/L (98-107); Estimated GFR 89.62 (mL/min/1.73m2); Glucose 109 mg/dL (74-106); NT-proBNP 149 pg/mL (<300); Potassium 3.6 mmol/L (3.5-5.1); Sodium 141 mmol/L (136-145); Total Protein 7.9 g/dL (6.4-8.2); Troponin I < 50 ng/L (<or=60)
[2023-05-19 17:26] LABS: COVID-19 PCR Negative (Negative)
--- NOTE | 2023-05-19 19:41 | W.ED.FU ---
Date of service: 05/19/23 Time of Service: 19:41 Follow Up Plan: Patient was admitted to the hospital for further management however the patient has decided to leave the hospital. He states that he does not want to be admitted because he has things he needs to do. The patient is competent to make his own medical decisions. I had a long discussion with the patient regarding risks, benefits, and alternatives to my recommended treatment plan, which includes hospitalization and the patient declined, voicing understanding of the risks but preferring instead to leave against medical advice. Some of the risks we specifically discussed included permanent disability or . I discussed with the patient that they were always welcome back to this department should they change their mind, and that regardless they should follow up with their primary care doctor at the soonest possible opportunity. All questions were answered and the patient left AMA in unchanged condition.
== END 2023-05-19 19:57 | disposition left against medical advice (07) ==
PROVIDERS: Emergency Provider Emergency Medicine; PCP Family Medicine
DX: I44.1 Atrioventricular block, second degree (principal)
CPT/HCPCS: 80053; 87635; 93005; 99291; 71045; 83735; 83880; 84484; 85025; 93010

== ENCOUNTER 2024-01-08 01:57 | Outpatient (CLI) | payer OTHER, MEDICAID, SELFPAY ==
[2024-01-08 12:40] LABS: ALT 29 U/L (16-63); AST 26 U/L (15-37); Albumin 3.7 g/dL (3.4-5.0); Alkaline Phosphatase 72 U/L (46-116); Anion Gap 6.9 mmol/L (3-11); BUN 17 mg/dL (7-18); Bilirubin, Total 0.5 mg/dL (0.2-1.0); CO2 30.1 mmol/L (21.0-32.0); Calcium 9.1 mg/dL (8.5-10.1); Calculated LDL 90 mg/dL (<100); Chloride 103 mmol/L (98-107); Cholesterol 145 mg/dL (<200); Estimated GFR 78.49 (mL/min/1.73m2); Glucose 122 mg/dL (74-106); HDL Cholesterol 36 mg/dL (40-60); Potassium 4.3 mmol/L (3.5-5.1); Sodium 140 mmol/L (136-145); Total Protein 7.8 g/dL (6.4-8.2); Triglyceride 97 mg/dL (<150)
[2024-01-08 12:58] LABS: Hemoglobin A1C 6.4 % (<5.7)
== END 2024-01-08 01:58 | disposition home or self-care (01) ==
LOC: LOS 01:59
PROVIDERS: PCP Family Medicine; Referring Provider Family Medicine; Visit Provider Family Medicine
DX: E11.9 Type 2 diabetes mellitus without complications (principal)
CPT/HCPCS: 36415; 80053; 80061; 83036

== ENCOUNTER 2024-04-01 15:20 | Outpatient (REF) | payer OTHER, MEDICAID, SELFPAY ==
[2024-04-01 21:25] LABS: COMMENT (LAB VIEW ONLY) 93.62 mg/dL; Microalb ug/mg Crea 15.2 ug/mg Cr
== END 2024-04-01 15:21 | disposition home or self-care (01) ==
LOC: LBN 15:20
PROVIDERS: PCP Family Medicine; Visit Provider Family Medicine
DX: E11.9 Type 2 diabetes mellitus without complications (principal)
CPT/HCPCS: 82043; 82570

== ENCOUNTER 2024-05-04 13:37 | Outpatient (CLI) | payer OTHER, MEDICAID, SELFPAY ==
[2024-05-04 14:13] LABS: ALT 30 U/L (16-63); AST 28 U/L (15-37); Albumin 3.7 g/dL (3.4-5.0); Alkaline Phosphatase 81 U/L (46-116); Anion Gap 9.5 mmol/L (3-11); BUN 11 mg/dL (7-18); Bilirubin, Total 0.54 mg/dL (0.2-1.0); CO2 27.5 mmol/L (21.0-32.0); CREATININE 0.9 mg/dL (0.70-1.30); Calcium 8.8 mg/dL (8.5-10.1); Chloride 106 mmol/L (98-107); Estimated GFR 89.07 (mL/min/1.73m2); Glucose 119 mg/dL (74-106); Potassium 4.1 mmol/L (3.5-5.1); Sodium 143 mmol/L (136-145); TSH (W/Ref FT4) 1.65 uIU/mL (0.36-3.74)
[2024-05-04 14:41] LABS: Hemoglobin A1C 5.8 % (<5.7)
== END 2024-05-04 13:38 | disposition home or self-care (01) ==
LOC: LBO 13:37
PROVIDERS: PCP Family Medicine; Visit Provider Family Medicine
DX: E03.9 Hypothyroidism, unspecified (principal); E66.01 Morbid (severe) obesity due to excess calories; Z68.43 Body mass index [BMI] 50.0-59.9, adult; E11.9 Type 2 diabetes mellitus without complications
CPT/HCPCS: 36415; 80053; 83036; 84443

== ENCOUNTER 2024-06-01 10:10 | Outpatient (CLI) | payer OTHER, MEDICAID, SELFPAY ==
[2024-06-01 12:41] LABS: Anion Gap 9.5 mmol/L (3-11); BUN 13 mg/dL (7-18); CO2 27.5 mmol/L (21.0-32.0); Chloride 106 mmol/L (98-107); Estimated GFR 78.49 (mL/min/1.73m2); Glucose 108 mg/dL (74-106); Sodium 143 mmol/L (136-145)
== END 2024-06-01 10:11 | disposition home or self-care (01) ==
LOC: LOS 10:11
PROVIDERS: PCP Family Medicine; Referring Provider Family Medicine; Visit Provider Family Medicine
DX: I10 Essential (primary) hypertension (principal); I50.32 Chronic diastolic (congestive) heart failure; Z00.00 Encounter for general adult medical examination without abnormal findings; R06.02 Shortness of breath; E11.9 Type 2 diabetes mellitus without complications; E66.01 Morbid (severe) obesity due to excess calories; Z68.43 Body mass index [BMI] 50.0-59.9, adult
CPT/HCPCS: 36415; 80048

== ENCOUNTER 2025-02-17 18:12 | Outpatient (REF) | payer MEDICARE, MEDICAID, SELFPAY | END 2025-02-17 18:13 | disposition home or self-care (01) | LOC: NCHCN 18:12 | PROVIDERS: PCP Family Medicine; Visit Provider Nurse Practitioner Family | DX: T14.8XXA Other injury of unspecified body region, initial encounter (principal) | CPT/HCPCS: 87070; 87205 ==

== ENCOUNTER 2025-06-01 16:39 | Outpatient (REF) | payer MEDICARE, MEDICAID, SELFPAY ==
[2025-06-01 17:18] LABS: ALT 30 U/L (16-63); AST 25 U/L (15-37); Albumin 3.7 g/dL (3.4-5.0); Alkaline Phosphatase 86 U/L (46-116); Anion Gap 8.5 mmol/L (3-11); BUN 15 mg/dL (7-18); Bilirubin, Total 0.6 mg/dL (0.2-1.0); CO2 30.5 mmol/L (21.0-32.0); Calcium 9.4 mg/dL (8.5-10.1); Chloride 102 mmol/L (98-107); Cholesterol 142 mg/dL (<200); Glucose 96 mg/dL (74-106); HDL Cholesterol 35 mg/dL (>or=40); Potassium 4.0 mmol/L (3.5-5.1); Sodium 141 mmol/L (136-145); Total Protein 7.7 g/dL (6.4-8.2)
== END 2025-06-01 16:40 | disposition home or self-care (01) ==
LOC: NCHCN 16:39
PROVIDERS: PCP Family Medicine; Visit Provider Nurse Practitioner Family
DX: Z00.00 Encounter for general adult medical examination without abnormal findings (principal); I50.32 Chronic diastolic (congestive) heart failure; K76.0 Fatty (change of) liver, not elsewhere classified
CPT/HCPCS: 80053; 80061